=== PATIENT | female | born 1990 | race Caucasian/White ===

== ENCOUNTER 2025-03-24 13:12 | Emergency (ER) | payer OTHER, SELFPAY ==
[2025-03-24 13:21] VITALS: PULSE 70; RESP 16; TEMP 36.9; O2SAT 99; BMI 31.3
--- NOTE | 2025-03-24 14:14 | DI.CT.S_ITS ---
PROCEDURE: CT HEAD/BRAIN WO CON INDICATIONS: abdi, recent URI, nausea TECHNIQUE: Noncontrast 4.5 mm thick angled axial sections acquired from the foramen magnum to the vertex, with coronal and sagittal reformats. For radiation dose reduction, the following was used: automated exposure control, adjustment of mA and/or kV according to patient size. COMPARISON: None. FINDINGS: Image quality: Diagnostic. CSF spaces: Basal cisterns are patent. No extra-axial fluid collections. Ventricles are normal in size and shape. Brain: No midline shift. No intracranial mass effect or hemorrhage. Barber- white matter interface is normal. Skull and face: Calvarium and visualized facial bones are intact, without suspicious lesions. Sinuses: Visualized sinuses and mastoids are clear. IMPRESSION: No acute intracranial pathology. Dictated by: Patricio Siddiqui M.D. on 03/24/2025 at 15:07 Approved by: Patricio Siddiqui M.D. on 03/24/2025 at 15:08
--- NOTE | 2025-03-24 14:15 | ED_ITS ---
HPI - Headache <Neeru Christianson DO - Last Filed: 03/24/25 16:11> General Chief Complaint: Headache Stated Complaint: Possible brain aneurysm . 30 days Time Seen by Provider: 03/24/25 14:00 Source: patient, RN notes reviewed and old records reviewed Mode of arrival: Ambulatory Limitations: no limitations History of Present Illness HPI Narrative: 34-year-old female complaint of headache that is started yesterday. Patient states that is in the back of her head but comes forward. She states no fevers or chills. She has had some kind of viral upper respiratory infection with hoarseness for several weeks. She states she has had several rounds of antibiotics. She notes today she has had a persistent headache that started yesterday into today. Has not changed in intensity. She states the lights always bother her, she has had some nausea but no vomiting. She states she has has a little bit of double vision here and there but has had that in the past. Patient states she has got some tingling bilateral upper extremities on and off. She denies any syncope. No new neck pain but notes she has a L and I for injury with neck pain in the past. She does note that she bumped her head recently but states she did not think it was very hard. She denies any new chest pain or shortness of breath. No other GI or urinary symptoms. No changes to ambulation, no weakness or numbness of her other extremities with no loss of bowel or bladder control. She notes she had a snap in the back of her had a month ago and also in September. She states she did not really have any pain at that time but was concerned that she could possibly have an aneurysm. She denies any history of aneurysms. Notes her father had strokes but no known aneurysmal history in the family. 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 States she has had a prior tubal ligation. Denies other surgeries. No tobacco, no regular alcohol or recreational drugs. Related Data Allergies Allergy/AdvReac Type Severity Reaction Status Date / Time Iodinated Contrast Media Allergy throat Verified 03/24/25 13:20 closed up Review of Systems <DO Radha Billy Last Filed: 03/24/25 16:11> Review of Systems ROS Unobtainable: All systems reviewed & are unremarkable except as noted in HPI and below Patient History <Neeru Christianson DO - Last Filed: 03/24/25 16:11> Social History Smoking Status: Never smoker Smoking Status: Never smoker Exam <Neeru Christianson DO - Last Filed: 03/24/25 16:11> Narrative Exam Narrative: GEN: well nourished, well appearing you, alert and oriented x [default value], patient appears to be in mild distress. HEENT: Atraumatic, pupils are equal round reactive to light, extraocular movements are intact, nares are clear, TMs are clear with no fluid, there is no conjunctival pallor. Throat is clear without any exudates, erythema, tonsillar enlargement or uvular deviation, patient is slightly hoarse, full range of motion. No cervical vertebral tenderness. No meningeal signs. HEART: Regular rate and rhythm without murmur, clicks, rubs. No carotid bruits, pulses are equal in upper and lower extremities LUNGS:Lungs clear to auscultation, no wheezes, rales, crackles, chest moves symmetrically ABD:bowel sounds normal, soft, non-tender, no guarding, rebound, rigidity, no masses noted, no hepatosplenomegaly MSCL: Non-tender, no muscle atrophy, muscles strength 5/5 upper and lower extremities, full range of motion, normal gait NEURO:CN 2-12 intact, sensation normal, finger nose finger test normal, heel kaplan test normal. SKIN: No Rash, erythema or other skin change Initial Vital Signs Initial Vital Signs: Vital Signs Temperature 98.4 F 03/24/25 13:21 Pulse Rate 70 03/24/25 13:21 Respiratory Rate 16 03/24/25 13:21 Pulse Oximetry 99 03/24/25 13:21 Oxygen Delivery Method Room Air 03/24/25 13:21 <Polly Ochoa MD - Last Filed: 03/24/25 19:33> Initial Vital Signs Initial Vital Signs: Vital Signs Temperature 98.4 F 03/24/25 13:21 Pulse Rate 70 03/24/25 13:21 Respiratory Rate 16 03/24/25 13:21 Pulse Oximetry 99 03/24/25 13:21 Oxygen Delivery Method Room Air 03/24/25 13:21 Course <Neeru Isaacs Meghan, DO - Last Filed: 03/24/25 16:11> Orders Ordered: ED Orders 03/24/25 14:14 CT head/brain wo con Stat 03/24/25 16:45 CBC Auto Diff [Complete Blood Count AUTO DIFF] Stat CMP [Comprehensive Metabolic Panel] Stat 03/24/25 17:20 Covid-19 + FLU A/B + RSV - PCR Stat Discontinued Medications Dexamethasone (Dexamethasone 10 Mg/Ml Vial) 10 mg IV NOW ONE Stop: 03/24/25 17:10 Last Admin: 03/24/25 18:26 Dose: 10 mg Documented By: STEVE Diphenhydramine HCl (Diphenhydramine 50 Mg/Ml Vial) 25 mg IV NOW ONE Stop: 03/24/25 17:10 Last Admin: 03/24/25 18:37 Dose: Not Given Documented By: TSEVE Droperidol (Droperidol 2.5 Mg/Ml Vial) 0.625 mg IV NOW ONE Stop: 03/24/25 17:10 Last Admin: 03/24/25 18:25 Dose: 0.625 mg Documented By: STEVE Sodium Chloride (Normal Saline 0.9%) 1,000 mls @ 1,000 mls/hr IV BOLUS ONE Stop: 03/24/25 15:13 Last Infusion: 03/24/25 18:38 Dose: Infused Documented By: Admin: 03/24/25 16:58 Dose: 1,000 mls/hr Documented By: VINAYAK Sodium Chloride (Normal Saline 0.9%) 1,000 mls @ 1,000 mls/hr IV BOLUS ONE Stop: 03/24/25 18:08 Last Admin: 03/24/25 18:37 Dose: Not Given Documented By: STEVE Ketorolac Tromethamine (Ketorolac 30 Mg/Ml Vial) 15 mg IV NOW ONE Stop: 03/24/25 15:15 Last Admin: 03/24/25 16:57 Dose: 15 mg Documented By: VINAYAK Ondansetron HCl (Ondansetron 4 Mg/2 Ml Inj) 4 mg IV NOW ONE Stop: 03/24/25 14:15 Last Admin: 03/24/25 16:57 Dose: 4 mg Documented By: VINAYAK Vital Signs Vital signs: Vital Signs - 8 hr 03/24/25 13:21 03/24/25 17:22 Temperature 98.4 F Pulse Rate 70 70 Respiratory Rate 16 16 Blood Pressure 140/56 L Pulse Oximetry 99 98 Oxygen Delivery Method Room Air Room Air <Polly Ochoa MD - Last Filed: 03/24/25 19:33> Orders Ordered: ED Orders 03/24/25 14:14 CT head/brain wo con Stat 03/24/25 16:45 CBC Auto Diff [Complete Blood Count AUTO DIFF] Stat CMP [Comprehensive Metabolic Panel] Stat 03/24/25 17:20 Covid-19 + FLU A/B + RSV - PCR Stat Discontinued Medications Dexamethasone (Dexamethasone 10 Mg/Ml Vial) 10 mg IV NOW ONE Stop: 03/24/25 17:10 Last Admin: 03/24/25 18:26 Dose: 10 mg Documented By: STEVE Diphenhydramine HCl (Diphenhydramine 50 Mg/Ml Vial) 25 mg IV NOW ONE Stop: 03/24/25 17:10 Last Admin: 03/24/25 18:37 Dose: Not Given Documented By: STEVE Droperidol (Droperidol 2.5 Mg/Ml Vial) 0.625 mg IV NOW ONE Stop: 03/24/25 17:10 Last Admin: 03/24/25 18:25 Dose: 0.625 mg Documented By: STEVE Sodium Chloride (Normal Saline 0.9%) 1,000 mls @ 1,000 mls/hr IV BOLUS ONE Stop: 03/24/25 15:13 Last Infusion: 03/24/25 18:38 Dose: Infused Documented By: Admin: 03/24/25 16:58 Dose: 1,000 mls/hr Documented By: VINAYAK Sodium Chloride (Normal Saline 0.9%) 1,000 mls @ 1,000 mls/hr IV BOLUS ONE Stop: 03/24/25 18:08 Last Admin: 03/24/25 18:37 Dose: Not Given Documented By: STEVE Ketorolac Tromethamine (Ketorolac 30 Mg/Ml Vial) 15 mg IV NOW ONE Stop: 03/24/25 15:15 Last Admin: 03/24/25 16:57 Dose: 15 mg Documented By: VINAYAK Ondansetron HCl (Ondansetron 4 Mg/2 Ml Inj) 4 mg IV NOW ONE Stop: 03/24/25 14:15 Last Admin: 03/24/25 16:57 Dose: 4 mg Documented By: VINAYAK Vital Signs Vital signs: Vital Signs - 8 hr 03/24/25 13:21 03/24/25 17:22 Temperature 98.4 F Pulse Rate 70 70 Respiratory Rate 16 16 Blood Pressure 140/56 L Pulse Oximetry 99 98 Oxygen Delivery Method Room Air Room Air MDM - Headache <Neeru Reynoldskarolina, DO - Last Filed: 03/24/25 16:11> Lab Data 03/24/25 16:45 03/24/25 16:45 Labs: Lab Results 03/24/25 03/24/25 Range/Units 16:45 17:20 WBC 8.7 (4.5-11.0) X10^3/uL RBC 4.78 (4.0-5.2) X10^6/uL Hgb 13.0 (12.0-16.0) g/dL Hct 38.7 (36-46) % MCV 81.0 (80-100) fL MCH 27.2 (26-34) PG MCHC 33.6 (30-36) % RDW 15.0 H (11.6-14.8) % Plt Count 274 (150-400) X10^3/uL Neut % (Auto) 65.2 (50-75) % Lymph % (Auto) 22.6 L (25-40) % [place] % (Auto) 6.7 (3-14) % Eos % (Auto) 5.4 H (2-4) % Baso % (Auto) 0.1 (0-2) % Neut # (Auto) 5700 (6902-0468) /uL Lymph # (Auto) 2000 (5445-4292) /uL [place] # (Auto) 600 (0-900) /uL Eos # (Auto) 500 H (0-450) /uL Baso # (Auto) 0 (0-100) /uL Sodium 140 (137-145) mmol/L Potassium 3.8 (3.4-5.1) mmol/L Chloride 107 (98-107) mmol/L Carbon Dioxide 22 (22-32) mmol/L BUN 11 (7-17) mg/dL Creatinine 0.61 (0.52-1.04) mg/dL Estimated GFR > 60 (>60) mL/min BUN/Creatinine Ratio 18.0 (6-22) Glucose 93 (70-99) mg/dL Calcium 9.3 (8.4-10.2) mg/dL Total Bilirubin 1.5 H (0.2-1.3) mg/dL AST 27 (14-36) IU/L ALT 30 (<35) IU/L Alkaline Phosphatase 61 (38-126) U/L Total Protein 8.2 (6.3-8.2) g/dL Albumin 4.7 (3.5-5.0) g/dL Globulin 3.5 (1.7-4.1) g/dL Albumin/Globulin Ratio 1.3 (1.0-2.8) SARS-CoV-2 (PCR) Negative (Negative) Influenza A (RT-PCR) Flu a negative (NEGATIVE) Influenza B (RT-PCR) Flu b negative (NEGATIVE) RSV (PCR) Negative (Negative) Point of Care Testing Test Results Negative MDM Narrative Medical decision making narrative: Patient signed out to Dr. Ochoa while workup is pending. <Polly Ochoa MD - Last Filed: 03/24/25 19:33> Lab Data Labs: Lab Results 03/24/25 03/24/25 Range/Units 16:45 17:20 WBC 8.7 (4.5-11.0) X10^3/uL RBC 4.78 (4.0-5.2) X10^6/uL Hgb 13.0 (12.0-16.0) g/dL Hct 38.7 (36-46) % MCV 81.0 (80-100) fL MCH 27.2 (26-34) PG MCHC 33.6 (30-36) % RDW 15.0 H (11.6-14.8) % Plt Count 274 (150-400) X10^3/uL Neut % (Auto) 65.2 (50-75) % Lymph % (Auto) 22.6 L (25-40) % [place] % (Auto) 6.7 (3-14) % Eos % (Auto) 5.4 H (2-4) % Baso % (Auto) 0.1 (0-2) % Neut # (Auto) 5700 (6919-5773) /uL Lymph # (Auto) 2000 (7309-8414) /uL [place] # (Auto) 600 (0-900) /uL Eos # (Auto) 500 H (0-450) /uL Baso # (Auto) 0 (0-100) /uL Sodium 140 (137-145) mmol/L Potassium 3.8 (3.4-5.1) mmol/L Chloride 107 (98-107) mmol/L Carbon Dioxide 22 (22-32) mmol/L BUN 11 (7-17) mg/dL Creatinine 0.61 (0.52-1.04) mg/dL Estimated GFR > 60 (>60) mL/min BUN/Creatinine Ratio 18.0 (6-22) Glucose 93 (70-99) mg/dL Calcium 9.3 (8.4-10.2) mg/dL Total Bilirubin 1.5 H (0.2-1.3) mg/dL AST 27 (14-36) IU/L ALT 30 (<35) IU/L Alkaline Phosphatase 61 (38-126) U/L Total Protein 8.2 (6.3-8.2) g/dL Albumin 4.7 (3.5-5.0) g/dL Globulin 3.5 (1.7-4.1) g/dL Albumin/Globulin Ratio 1.3 (1.0-2.8) SARS-CoV-2 (PCR) Negative (Negative) Influenza A (RT-PCR) Flu a negative (NEGATIVE) Influenza B (RT-PCR) Flu b negative (NEGATIVE) RSV (PCR) Negative (Negative) Point of Care Testing Test Results Negative MDM Narrative Medical decision making narrative: Patient signed out to Dr. Ochoa while workup is pending. 34-year-old woman presents with 1 of the most severe headaches she has had in her life. She does have a history of migraine but well controlled with lifestyle changes and avoidance of hormonal control CT scan of the head is done which rules out mass, tumor obvious bleeding. Scan is unremarkable Lab work shows normal CBC and chemistries She does not have COVID influenza or RSV as the cause of her headache She notes that she does feel better after a L of fluid, Zofran, Toradol, droperidol and dexamethasone. Findings reviewed with her including unremarkable head CT. At this point there is no indication for further workup or hospitalization. Questions are answered and she is safely discharged Discharge Plan Departure Patient Disposition: Home Clinical Impression: Migraine Instructions: DI for Migraine Activity Restrictions/Additional Instructions: Thank you for coming in today 1 of the worst headaches of your life definitely deserves further evaluation. Fortunately, the CT scan of your brain was absolutely normal, your brain looks very healthy. Your blood work does not show signs of infection, anemia, kidney problems, liver issues or other reasons that might explain significant headache. We also checked for COVID influenza and RSV none of which were positive. There still are multiple other viruses that can exacerbate headaches. You were given fluid, Zofran, Toradol, a nap seen and dexamethasone which did not seem to help some with the headache At this time and is safe for you to go home. I hope that you are able to get a good night sleep which often is why the most important treatments for headache resolution If you find that you are getting worse or develop any new symptoms, please feel free to return to the emergency department for further evaluation. Stand Alone Forms: Patient Portal/API
[2025-03-24 16:51] LABS: Add Manual Diff / Slide Review NO; Hematocrit 38.7 % (36-46); Hemoglobin 13.0 g/dL (12.0-16.0); Lymphocytes Absolute Auto 2000 /uL (1100-4500); Mean Corpuscular HGB Conc 33.6 % (30-36); Mean Corpuscular Hemoglobin 27.2 PG (26-34); Mean Corpuscular Volume 81.0 fL (80-100); Platelet Count 274 X10^3/uL (150-400)
[2025-03-24] MEDS: ONDANSETRON 4 MG/2 ML INJ IV (16:57)
[2025-03-24] MEDS: KETOROLAC 30 MG/ML VIAL 15 MG IV (16:57)
[2025-03-24] MEDS: SODIUM CHLORIDE 0.9% 1,000 ML 1000 ML IV (16:58)
[2025-03-24 17:04] LABS: Alanine Aminotransferase 30 IU/L (<35); Albumin 4.7 g/dL (3.5-5.0); Albumin Globulin Ratio 1.3 (1.0-2.8); Alkaline Phosphatase 61 U/L (38-126); Blood Urea Nitrogen 11 mg/dL (7-17); Calcium 9.3 mg/dL (8.4-10.2); Carbon Dioxide 22 mmol/L (22-32); Chloride 107 mmol/L (98-107); Estimated Glomerular Filt Rate > 60 mL/min (>60); Globulin 3.5 g/dL (1.7-4.1); Glucose 93 mg/dL (70-99); HEMOLYSIS < 15 (0-50); Potassium 3.8 mmol/L (3.4-5.1); Sodium 140 mmol/L (137-145); Total Protein 8.2 g/dL (6.3-8.2)
[2025-03-24 17:22] VITALS: BP 140/56; PULSE 70; RESP 16; O2SAT 98
[2025-03-24 18:01] LABS: Influenza A - CEPHEID Flu A NEGATIVE (NEGATIVE); Influenza B - CEPHEID Flu B NEGATIVE (NEGATIVE)
[2025-03-24 18:05] LABS: COVID-19 CEPHEID 4-PLEX PCR Negative (Negative)
[2025-03-24] MEDS: droPERidol 2.5 MG/ML VIAL 0.625 MG IV (18:25)
[2025-03-24 19:48] VITALS: BP 118/73; PULSE 77; RESP 17; O2SAT 99
== END 2025-03-24 19:49 | disposition home or self-care (01) ==
PROVIDERS: Emergency Medicine; Emergency Provider Emergency Medicine
DX: G43.909 Migraine, unspecified, not intractable, without status migrainosus (principal); R49.0 Dysphonia; R11.0 Nausea; R20.2 Paresthesia of skin
CPT/HCPCS: 36415; 70450; 80053; 81025; 85025; 87637; 96374; 96375; 99284; J1100; J1200; J1790; J1885; J2405; J7030